=== PATIENT | female | born 1950 | race Caucasian/White ===

== ENCOUNTER 2016-03-30 09:55 | Day surgery (SDC) | payer OTHER ==
[2016-03-30] MEDS ORDERED: NS 1,000 ML ONE (10:10)
[2016-03-30] MEDS ORDERED: CIPRO 400 MG/D5W 200 ML ONE (10:10)
[2016-03-30] MEDS ORDERED: PEPCID ONE (10:23)
[2016-03-30 11:05] LABS: HEMATOCRIT 38.5 % (37.0-47.0); HEMOGLOBIN 12.1 g/dL (12.0-16.0); MCH 25.4 PG (27-31); MCHC 31.4 g/dL (33-37); MCV 80.7 FL (81-99); MPV 9.3 FL (7.4-10.4); RBC 4.77 XMIL (4.2-5.4)
[2016-03-30 11:19] LABS: AGAP 11; BUN 8 mg/dL (8-22); CALCIUM 9.4 mg/dL (8.8-10.2); CHLORIDE 101 mmol/L (98-107); COSMO 280; POTASSIUM 3.7 mmol/L (3.5-5.1); SODIUM 141 mmol/L (136-145); TCO2 29 mmol/L (25-35)
[2016-03-30] MEDS ORDERED: MYLICON DROPS (DOSE) MISC ONE (14:04)
[2016-03-30] MEDS ORDERED: VERSED ONE (14:31)
[2016-03-30] MEDS ORDERED: DIPRIVAN 1% ONE (14:31)
[2016-03-30] MEDS ORDERED: XYLOCAINE-MPF 2% ONE (14:58)
--- NOTE | 2016-03-30 15:08 | Diag Imaging Result Document ---
PROCEDURE NAME: ERCP-BILIARY AND PANCREATIC - 03/30/2016 ERCP: FINDINGS: During the course of the procedure, Dr. Reese evidently removed sediment and stones from the common bile duct with sphincterotomy and placement of a stent. This is seen on the last image. IMPRESSION: Stent placement and sphincterotomy by Dr. Reese.
[2016-03-30 15:21] VITALS: BP 151/88
--- NOTE | 2016-03-30 15:25 | EKG Report ---
Test Performed on : 03/30/2016 10:57:23 AM Test Reason : Preop Blood Pressure : / mmHG Vent. Rate : 063 BPM Atrial Rate : 063 BPM P-R Int : 156 ms QRS Dur : 098 ms QT Int : 430 ms P-R-T Axes : 000 002 018 degrees QTc Int : 440 ms Normal sinus rhythm. Cannot rule out Anterior infarct , age undetermined Abnormal ECG No previous ECGs available Confirmed by Leo Norton MD ([id number]) on 03/31/2016 9:31:00 PM
--- NOTE | 2016-03-30 15:31 | OPERATIVE NOTE ---
PROCEDURE DATE : 03/30/2016 PROCEDURES: 1. Endoscopic retrograde cholangiopancreatography. 2. Sphincterotomy. 3. Lavage of the bile duct. 4. Stent placement. PREOPERATIVE DIAGNOSES: 1. Recurrent biliary pancreatitis. 2. Rule out common bile duct stone. POSTOPERATIVE DIAGNOSES: 1. Sludge packed common bile duct. 2. Possible papillary stenosis. DESCRIPTION OF PROCEDURE: After informed consent, adequate intravenous sedation, the scope introduced through the esophagus, stomach, and duodenum. The ampullary area appears to be slightly friable, possibly from recent pancreatitis. Selective cholangiogram was obtained. The patient had a 5 mm column of sludge. While the sphincterotomy was being done, the sludge fell out. After that, a lavage was done, after the duct was cleaned. A 10-Estonian, 5 cm stent was placed. The scope was withdrawn. The patient tolerated the procedure and was transferred back to recovery in satisfactory condition. She will need a cholecystectomy. Because of the quantity of the sludge and intact gallbladder, she will have problems in the future.
== END 2016-03-30 15:15 | disposition home or self-care (01) ==
LOC: ENDO 09:55
PROVIDERS: ATTEND Internal Medicine Gastroenterology
DX: K86.1 Other chronic pancreatitis (principal); Z87.891 Personal history of nicotine dependence
CPT/HCPCS: 74330; 80048; 85027; 93005; 93010; C2617; J0744; J2250; J7030; Q9966

== ENCOUNTER 2016-04-02 11:43 | Inpatient (IN) | payer OTHER ==
[2016-04-02 12:16] LABS: MANUAL DIFF NEEDED? NO
[2016-04-02 12:23] LABS: BASO% 0.4 % (0.0-0.8); EOS# 0.25 X1000 (0.0-0.7); EOS% 2.8 % (0.0-10.0); HEMATOCRIT 36.3 % (37.0-47.0); HEMOGLOBIN 11.4 g/dL (12.0-16.0); LYMPH% 31.4 % (20.5-51.1); MCH 25.1 PG (27-31); MCHC 31.4 g/dL (33-37); MCV 79.8 FL (81-99); MONO# 0.73 X1000 (0.11-0.59); MONO% 8.2 % (1.7-9.3); MPV 9.4 FL (7.4-10.4); NEUT% 57.2 % (42.2-75.2); PLT 292 X1000 (130-400); RBC 4.55 XMIL (4.2-5.4)
[2016-04-02] MEDS ORDERED: BOOSTRIX VACCINE IM ONE (12:37)
[2016-04-02] MEDS ORDERED: NS 1,000 ML IV ONE (12:43)
[2016-04-02] MEDS ORDERED: ZOFRAN IV ONE (12:43)
[2016-04-02] MEDS ORDERED: DILAUDID IV ONE ×2 (12:53→16:28)
[2016-04-02 12:58] LABS: AGAP 12; ALBUMIN 3.9 g/dL (3.5-5.0); ALKALINE PHOSPHATASE 135 U/L (32-104); BUN 6 mg/dL (8-22); CALCIUM 9.1 mg/dL (8.8-10.2); CHLORIDE 96 mmol/L (98-107); COSMO 269; GOT 32 U/L (10-30); GPT 30 U/L (10-36); POTASSIUM 3.7 mmol/L (3.5-5.1); SODIUM 136 mmol/L (136-145); TCO2 28 mmol/L (25-35); TOTAL BILIRUBIN 0.23 mg/dL (0.20-1.00)
[2016-04-02 12:59] LABS: AMYLASE 192 U/L (20-200); LIPASE 159 U/L (13-60)
--- NOTE | 2016-04-02 13:00 | PROVIDER DOCUMENTATION ---
Addendum entered and electronically signed by Sarina Rainey MD 04/02/16 16:08: Additional Progress - ADDITIONAL PLAN OF CARE/RESULTS Additional Progress/Plan/Lab Results: Consulted Dr. Whiteside, agreed to admit pt to hospitalist and Dr. Lindquist will take over pt's care tomorrow morning. Addendum entered and electronically signed by Sarina Raniey MD 04/02/16 15:55: Additional Progress - ADDITIONAL PLAN OF CARE/RESULTS Additional Progress/Plan/Lab Results: Admit to Dr. Persaud Original Note: HPI-Abdominal Pain/GI Problem - General Source: patient, family - History of Present Illness-ABD Nature of Presenting Problems: Hx of pancreatitis x [address] Donald on Tuesday had stent placed in Gallbladder duct and reports to er today with cc of LUQ pain sharp since this morning. Reports has had no BM since Tuesday. States has had generalized itching since procedure as well. Abdominal Pain Onset Location: reports: LUQ Pain Radiation: reports: no radiation Quality of Pain: reports: sharp Severity in ED: reports: moderate Onset/Duration: reports: this morning Timing: reports: still present Last BM: 3 days ago Dark Stools Present?: reports: none noticed Rectal Bleeding: reports: none Rectal Pain: reports: none Bruising or Bleeding Gums?: No Similar Symptoms Previously?: No Recently seen or treated by another doctor?: Yes <Melisa Dennison - Last Filed: 04/02/16 15:28> <Sarina Rainey - Last Filed: 04/02/16 15:50> - General Chief Complaint: Abdominal Pain Stated Complaint: ABD PAIN Time Seen by Provider: 04/02/16 12:36 Allergies/Adverse Reactions: Patient Allergies Allergy/AdvReac Type Severity Reaction Status Date / Time phenazopyridine HCl * Allergy Unknown NAUSEA/VOMI Verified 04/02/16 14:37 [From Pyridium] TING NSAIDS (Non-Steroidal Allergy HIVES Verified 04/02/16 14:37 Anti-Inflamma codeine AdvReac NAUSEA/VOMI Verified 04/02/16 14:37 TING Home Medications: Home Medication List Medication Instructions Recorded Confirmed Last Taken Type Esomeprazole [Nexium] 40 mg PO DAILY 07/14/15 03/30/16 03/29/16 History Promethazine [Phenergan] 25 mg PO BID PRN PRN #20 tablet 03/30/16 Unknown Rx Review of Systems - Adult - REVIEW OF SYSTEMS - ADULT Constitutional: denies: chills, fever, fatique Eyes: reports: no symptoms reported Ears, Nose, Mouth & Throat: reports: no symptoms reported Cardiovascular: denies: chest pain, irregular heart rate, orthopnea Respiratory: reports: no symptoms reported Gastrointestinal: reports: see HPI, abdominal pain. denies: diarrhea, nausea, vomiting Genitourinary: denies: dysuria, frequent UTI's, hematuria Musculoskeletal: reports: no symptoms reported Integumentary: reports: see HPI, itching. denies: hives, hair loss, mole changes, nail changes, rash Neurological: reports: no symptoms reported Psychiatric: reports: no symptoms reported Endocrine: reports: no symptoms reported Hematologic/Lymphatic: reports: no symptoms reported Allergic/Immunologic: reports: no symptoms reported All Other Systems: Reviewed and Negative <Melisa Dennison - Last Filed: 04/02/16 15:28> Past History - Adult - PAST MEDICAL HISTORY-ADULT Review of Records: reports: Nursing Assessment Review, Medications Reviewed Major Childhood Illnesses: reports: denies history Cardiovascular: reports: HTN, hyperlipidemia Respiratory: reports: sleep apnea Gastrointestinal: reports: IBS, pancreatitis Neurological: reports: Multiple Sclerosis, Parkinson's Endocrine/Immune: reports: thyroid disorder - PRIOR SURGERIES/PROCEDURES Surgical/Procedure History: reports: appendectomy, hysterectomy, BTL, bowel surgery, breast, other (bladder cancer x5) - IMMUNIZATION STATUS Childhood Immunizations: See Nurse Assessment Flu Vaccine: See Nurse Assessment - SOCIAL HISTORY Smoking: denies Substance Use: none/never <Melisa Dennison - Last Filed: 04/02/16 15:28> Physical Exam-General - PHYSICAL EXAM-ADULT Initial Vital Signs Reviewed: Yes - CONSTITUTIONAL General Appearance: appears well, alert, no apparent distress - EYES Eyes: PERRL/EOMI - NECK Neck: non-tender, full range of motion, supple, normal inspection - RESPIRATORY Respiratory: chest non-tender, lungs clear, normal breath sounds - CARDIOVASCULAR Cardiovascular: regular rate, rhythm - GASTROINTESTINAL (ABDOMEN) Abdominal Exam: soft, no organomegaly, no pulsatile mass, tenderness ( generalized). negative: distended, guarding, rigid, rebound - MUSCULOSKELETAL Extremity: normal range of motion, non-tender - SKIN Integumentary: normal color, normal turgor, warm/dry - NEUROLOGIC Neurologic: grossly normal - PSYCHIATRIC Psych/Mental Status: normal mood/affect, normal thought content, normal thought process, oriented x 3 <Melisa Dennison - Last Filed: 04/02/16 15:28> Progress - PLAN OF CARE/RESULTS Progress/Plan/Lab Results: Orders Category Date Time Status ABDOMEN/PELVIS W/CONTRAST [CT] Stat Exams 04/02/16 12:41 Ordered AMYLASE [CHEM] Stat Lab 04/02/16 12:08 Received CBC WITH ELECTRONIC DIFF [HEME] Stat Lab 04/02/16 12:08 Completed CMP [COMPREHENSIVE METABOLIC PANEL] [CHEM] Stat Lab 04/02/16 12:08 Received LIPASE [CHEM] Stat Lab 04/02/16 12:08 Received UA NIMS W/REFLEX CULT [URINALYSIS] Stat Lab 04/02/16 12:41 Uncollected 0.9% Sodium Chloride Inj [Ns] 1,000 ml Med 04/02/16 12:43 Active IV 999 mls/hr Diph,Pertuss(Acell),Tet Vac/Pf [Boostrix Vaccine] Med 04/02/16 12:37 Discontinued 0.5 ml IM .ONCE ONE Hydromorphone [Dilaudid] Med 04/02/16 12:53 Discontinued 1 mg IV NOW ONE Ondansetron [Zofran] Med 04/02/16 12:43 Discontinued 8 mg IV NOW ONE Vital Signs - 24 hr 04/02/16 11:57 Temperature 98.1 F Pulse Rate 94 H Respiratory 20 Rate Blood Pressure 168/83 O2 Sat by Pulse 100 Oximetry Laboratory Tests 04/02/16 12:08 WBC 8.91 RBC 4.55 Hgb 11.4 L Hct 36.3 L MCV 79.8 L MCH 25.1 L MCHC 31.4 L RDW Std Deviation 13.7 Plt Count 292 MPV 9.4 Immature Gran % (Auto) 0.0 Neut % (Auto) 57.2 Lymph % (Auto) 31.4 Hendry % (Auto) 8.2 Eos % (Auto) 2.8 Baso % (Auto) 0.4 Immature Gran # (Auto) 0.00 Neut # (Auto) 5.09 Lymph # (Auto) 2.80 Hendry # (Auto) 0.73 H Eos # (Auto) 0.25 Baso # (Auto) 0.04 Laboratory Tests 04/02/16 04/02/16 04/02/16 12:08 12:08 12:08 WBC 8.91 RBC 4.55 Hgb 11.4 L Hct 36.3 L MCV 79.8 L MCH 25.1 L MCHC 31.4 L RDW Std Deviation 13.7 Plt Count 292 MPV 9.4 Immature Gran % (Auto) 0.0 Neut % (Auto) 57.2 Lymph % (Auto) 31.4 Hendry % (Auto) 8.2 Eos % (Auto) 2.8 Baso % (Auto) 0.4 Immature Gran # (Auto) 0.00 Neut # (Auto) 5.09 Lymph # (Auto) 2.80 Hendry # (Auto) 0.73 H Eos # (Auto) 0.25 Baso # (Auto) 0.04 Sodium 136 Potassium 3.7 Chloride 96 L Carbon Dioxide 28 Anion Gap 12 BUN 6 L Creatinine 0.6 Estimated GFR/1.73 m2 > 60 BUN/Creatinine Ratio 10 Glucose 93 Calculated Osmolality 269 Calcium 9.1 Total Bilirubin 0.23 AST 32 H ALT 30 Alkaline Phosphatase 135 H Total Protein 7.0 Albumin 3.9 Globulin 3.1 Albumin/Globulin Ratio 1.3 Amylase 192 Lipase 159 H Urine Source Urine Color Urine Turbidity Urine pH Ur Specific [place] Urine Protein Ur Glucose (Stick) Ur Ketones (Stick) Urine Blood Urine Nitrite Urine Bilirubin Urobilinogen Dipstick Urine Leukocytes Urine WBC (Auto) Urine RBC (Auto) U Epithel Cells (Auto) Urine Bacteria (Auto) 04/02/16 13:50 WBC RBC Hgb Hct MCV MCH MCHC RDW Std Deviation Plt Count MPV Immature Gran % (Auto) Neut % (Auto) Lymph % (Auto) Hendry % (Auto) Eos % (Auto) Baso % (Auto) Immature Gran # (Auto) Neut # (Auto) Lymph # (Auto) Hendry # (Auto) Eos # (Auto) Baso # (Auto) Sodium Potassium Chloride Carbon Dioxide Anion Gap BUN Creatinine Estimated GFR/1.73 m2 BUN/Creatinine Ratio Glucose Calculated Osmolality Calcium Total Bilirubin AST ALT Alkaline Phosphatase Total Protein Albumin Globulin Albumin/Globulin Ratio Amylase Lipase Urine Source CLEAN CATCH Urine Color YELLOW Urine Turbidity CLEAR Urine pH 6.5 Ur Specific [place] 1.010 Urine Protein NEGATIVE Ur Glucose (Stick) NEGATIVE Ur Ketones (Stick) NEGATIVE Urine Blood NEGATIVE Urine Nitrite NEGATIVE Urine Bilirubin NEGATIVE Urobilinogen Dipstick NORMAL Urine Leukocytes NEGATIVE Urine WBC (Auto) <10 Urine RBC (Auto) <10 U Epithel Cells (Auto) <10 Urine Bacteria (Auto) NEGATIVE Laboratory Tests 04/02/16 04/02/16 04/02/16 12:08 12:08 12:08 WBC 8.91 RBC 4.55 Hgb 11.4 L Hct 36.3 L MCV 79.8 L MCH 25.1 L MCHC 31.4 L RDW Std Deviation 13.7 Plt Count 292 MPV 9.4 Immature Gran % (Auto) 0.0 Neut % (Auto) 57.2 Lymph % (Auto) 31.4 Hendry % (Auto) 8.2 Eos % (Auto) 2.8 Baso % (Auto) 0.4 Immature Gran # (Auto) 0.00 Neut # (Auto) 5.09 Lymph # (Auto) 2.80 Hendry # (Auto) 0.73 H Eos # (Auto) 0.25 Baso # (Auto) 0.04 Sodium 136 Potassium 3.7 Chloride 96 L Carbon Dioxide 28 Anion Gap 12 BUN 6 L Creatinine 0.6 Estimated GFR/1.73 m2 > 60 BUN/Creatinine Ratio 10 Glucose 93 Calculated Osmolality 269 Calcium 9.1 Total Bilirubin 0.23 AST 32 H ALT 30 Alkaline Phosphatase 135 H Total Protein 7.0 Albumin 3.9 Globulin 3.1 Albumin/Globulin Ratio 1.3 Amylase 192 Lipase 159 H Urine Source Urine Color Urine Turbidity Urine pH Ur Specific [place] Urine Protein Ur Glucose (Stick) Ur Ketones (Stick) Urine Blood Urine Nitrite Urine Bilirubin Urobilinogen Dipstick Urine Leukocytes Urine WBC (Auto) Urine RBC (Auto) U Epithel Cells (Auto) Urine Bacteria (Auto) 04/02/16 13:50 WBC RBC Hgb Hct MCV MCH MCHC RDW Std Deviation Plt Count MPV Immature Gran % (Auto) Neut % (Auto) Lymph % (Auto) Hendry % (Auto) Eos % (Auto) Baso % (Auto) Immature Gran # (Auto) Neut # (Auto) Lymph # (Auto) Hendry # (Auto) Eos # (Auto) Baso # (Auto) Sodium Potassium Chloride Carbon Dioxide Anion Gap BUN Creatinine Estimated GFR/1.73 m2 BUN/Creatinine Ratio Glucose Calculated Osmolality Calcium Total Bilirubin AST ALT Alkaline Phosphatase Total Protein Albumin Globulin Albumin/Globulin Ratio Amylase Lipase Urine Source CLEAN CATCH Urine Color YELLOW Urine Turbidity CLEAR Urine pH 6.5 Ur Specific [place] 1.010 Urine Protein NEGATIVE Ur Glucose (Stick) NEGATIVE Ur Ketones (Stick) NEGATIVE Urine Blood NEGATIVE Urine Nitrite NEGATIVE Urine Bilirubin NEGATIVE Urobilinogen Dipstick NORMAL Urine Leukocytes NEGATIVE Urine WBC (Auto) <10 Urine RBC (Auto) <10 U Epithel Cells (Auto) <10 Urine Bacteria (Auto) NEGATIVE - CT/MRI 1 CT Study: Abdomen Impression: Abnormal (mild ileus vs partial SBO, pancreatic head larger than 08/10; CBD stent; constipation ()) <Melisa Dennison - Last Filed: 04/02/16 15:28> Departure - Departure Time of Disposition Order: 15:29 Certified Medical Emergency: Emergent <Melisa Dennison - Last Filed: 04/02/16 15:28> - Departure Time of Disposition Order: 15:50 Certified Medical Emergency: Emergent <Sarina Rainey - Last Filed: 04/02/16 15:50> - Departure DIAGNOSIS: SBO (small bowel obstruction) Pancreatitis, chronic Qualifiers: Pancreatitis type: unspecified pancreatitis type Qualified Code(s): K86.1 - Other chronic pancreatitis Disposition: ADMITTED INPATIENT 09 Condition: Stable Referrals: Mali Johansen MD [Primary Care Provider] - Attestation - Scribe Verification/Attestation Scribe:: Melisa Dennison Acting as Scribe for:: Sarina Rainey Scribe documention review:: This chart was documented by a scribe and accurately reflects the service the provider performed and the decisions made by the provider. <Melisa Dennison - Last Filed: 04/02/16 15:28> Physician Attestation
[2016-04-02 14:07] LABS: URINE CULTURE NEEDED? NO; URINE MICRO REVIEW NEEDED? NO; URINE SOURCE CLEAN CATCH
[2016-04-02 14:12] LABS: BILIRUBIN URINE NEGATIVE (NEGATIVE); BLOOD URINE NEGATIVE (NEGATIVE); COLOR YELLOW; GLUCOSE URINE NEGATIVE (NEGATIVE); LEUKOCYTES URINE NEGATIVE (NEGATIVE); NITRITE URINE NEGATIVE (NEGATIVE); PH URINE 6.5; PROTEIN URINE NEGATIVE (NEGATIVE); TURBIDITY URINE CLEAR (CLEAR); UR EPITHELIAL CELLS <10 /HPF (<10); URINE BACTERIA NEGATIVE /HPF; URINE RBC <10 /HPF (<10); URINE WBC <10 /HPF (<10); UROBILINOGEN URINE NORMAL (NORMAL)
[2016-04-02] MEDS ORDERED: HYDROXYZINE PO ONE (14:47)
[2016-04-02] MEDS ORDERED: BENADRYL IV ONE ×2 (16:28→22:13)
--- NOTE | 2016-04-02 17:38 | Diag Imaging Result Document ---
PROCEDURE NAME: ABDOMEN/PELVIS W/CONTRAST - 04/02/2016 CT OF THE ABDOMEN WITH INTRAVENOUS CONTRAST: FINDINGS: There is no evidence of acute disease in the visualized portion of the chest. There is pneumobilia presumably due to the presence of a biliary stent in the common bile duct. There is periportal edema which was not the case at the time of the previous study of 08/11/2015. The pancreatic duct is dilated distally measuring over 7 mm. This has worsened since the previous study at which time it measured 6 mm. The mesenteric vessels are patent and the aorta is not distended. The spleen is stable in appearance as are the adrenal glands. The pancreatic head is larger than it was on the previous study. This may be due to inflammation but the possibility of neoplastic disease cannot be entirely excluded. The AP dimension measured anterior to the inferior vena cava at the level of the distal common bile duct has increased from 2.6-3.8 cm. There is still a knuckle of small bowel herniating into the defect at the level of the umbilicus which was also the case previously. There is a moderately large amount of stool in the colon, all of which appears to be on the left side of the abdomen. There is some small bowel loops which are distended in the mid abdomen. There is contrast in the distal small bowel, however, and this is fairly normal in caliber. There is a fairly large amount of stool in the colon. There is otherwise no significant adenopathy. The kidneys are without evidence of hydronephrosis. There are multiple cortical cysts in the left kidney. There are surgical clips throughout the left side of the abdomen including the anterior pararenal space. CT OF THE PELVIS WITH INTRAVENOUS AND ORAL CONTRAST: FINDINGS: There is stool all the way to the rectum. There is no evidence of significant free fluid. There has been a hysterectomy. The urinary bladder is unremarkable. IMPRESSION: 1. The possibility of focal ileus or partial small bowel obstruction in the proximal small bowel cannot be excluded. 2. Constipation. 3. Enlargement of the pancreatic head as described. 4. Biliary stent. 5. Otherwise, stable since 08/11/2015.
[2016-04-02] MEDS ORDERED: SODIUM CHLORIDE 0.9% INJ SCH ×2 (17:50)
--- NOTE | 2016-04-02 18:10 | HISTORY AND PHYSICAL ---
PRIMARY CARE PHYSICIAN: Dr. Karen Johansen. HEARING OFFICER: Dr. Reese. NEUROLOGIST: Dr. Amezcua in [place]. CHIEF COMPLAINT: Abdominal pain. HISTORY OF PRESENT ILLNESS: Mrs. Phan is a 65-year-old female, with multiple medical problems including Parkinson's, MS, bladder cancer in current remission, chronic pancreatitis, hypertension and hyperlipidemia who was recently seen by Dr. Reese here and had an ERCP with stent placement secondary to chronic pancreatitis approximately 2 days ago. Since that time, she has been constipated and yesterday she began to develop mild abdominal pain which worsened today to a sharp epigastric pain which occasionally radiates to the left upper quadrant. She also has generalized itching but no rash. She also complains of subjective fever and chills and diaphoresis. She denies any chest pain or shortness of breath. She has no other complaints with the exception of the previously stated. When she got to the ER here she had lab work done. Her lipase was only mildly elevated at 159 and there was no white count. Urinalysis did not show anything acute. A CT abdomen and pelvis showed mild ileus versus partial SBO, pancreatic head larger than previous and a CBD stent in place. Constipation was also noted. Her vital signs are stable. We are now going to admit her for further treatment and evaluation. PAST MEDICAL HISTORY: 1. Chronic pancreatitis. 2. Essential sleep apnea. 3. History of bladder cancer currently in remission. 4. Parkinson's disease followed by Dr. Amezcua in [place]. 5. MS. 6. RLS. 7. IBS. 8. Hypertension. 9. Hyperlipidemia. 10. GERD. SURGICAL HISTORY: Tubal ligation, appendectomy, hysterectomy, breast biopsy, multiple bladder cancers removed, partial colon resection with approximately 16 cm of colon remaining per patient report, thyroidectomy. SOCIAL HISTORY: Patient quit smoking some time ago. She denies alcohol or drug use. is at the bedside. FAMILY HISTORY: Mother from colon cancer. Father from dementia. REVIEW OF SYSTEMS: Fourteen-point review of systems was obtained and found to be negative with the exception of the HPI. HOME MEDICATIONS: Currently she is not on any medications secondary to her pancreatitis but she is on Diovan 80 mg daily, amantadine 100 mg twice a day, duloxetine 60 mg daily, donepezil 5 mg daily, Azilect 1 mg as directed, Nexium 40 mg daily, Nu-Pro patch 4 mg as directed, atorvastatin 40 mg daily, Zyrtec as needed. ALLERGIES: To phenazopyridine, NSAIDs, codeine. REVIEW OF SYSTEMS: 14 point review of systems obtained and found to be negative with the exception of the HPI. PHYSICAL EXAMINATION: VITAL SIGNS: Blood pressure is 166/94, heart rate is 83, respiratory rate is 20, O2 saturations 97% on room air. Temperature is 98.1 degrees. GENERAL: This is an overweight female, lying in hospital bed in no acute distress. NEUROLOGIC: Awake, alert and oriented. She follows commands without focal deficits. HEENT: Head is atraumatic and normocephalic. Her pupils are equal, round, reactive to light. Oral mucosa is moist. Trachea is midline. There is no JVD or carotid bruits. CHEST: Clear to auscultation bilaterally. CV: Regular rate and rhythm. S1, S2 is noted. No murmurs, gallops, clicks, or rubs. GI: Epigastric tenderness to palpation. Overall belly is soft with hypoactive bowel sounds. No distention. EXTREMITIES: Without edema, clubbing or cyanosis. Pulses are palpable bilaterally. DIAGNOSTIC DATA: CT abdomen please see HPI. WBC 8.91, hemoglobin 11.4, hematocrit 36.3, platelet count 292,000. Sodium 136, potassium 3.7, chloride 96, CO2 28, anion gap 12. BUN 6, creatinine 0.6, glucose 93, AST 32, ALT 30, alkaline phosphatase 135, protein 7, lipase 159, amylase 192. UA is negative for any acute process. ASSESSMENT/PLAN: 1. Acute on chronic pancreatitis in the setting of recently placed CBD stent: Patient will be kept NPO with IV fluids and pain medicine. We will consult Dr. Reese and continue with fluids and antiemetics. 2. Hypertension. We will treat with IV p.r.n. medications. 3. GERD. We will add IV Protonix. 4. History of MS and Parkinson's: Chronic and stable. Will restart her medications once she is able to take oral medications. 5. History of bladder cancer: This is currently in remission, however given her longstanding history of malignancy, we will go ahead and order a CA-19-9 to rule out pancreatic malignancy. 6. DVT prophylaxis. We will add SCDs, TEDs. 7. GI prophylaxis, Protonix. 8. Further recommendations to follow. Dictated by SARA Knight for Pio Roe MD
[2016-04-02] MEDS: NS 1,000 ML IV SCH (19:00)
[2016-04-02] MEDS: MORPHINE IV PRN ×2 (19:01→22:58)
[2016-04-02] MEDS: PROTONIX IV SCH (19:01)
[2016-04-02] MEDS ORDERED: BENADRYL PO ONE (20:27)
[2016-04-02] MEDS ORDERED: CHLORASEPTIC SPRAY MT PRN (22:13)
[2016-04-02] MEDS: DULCOLAX PR SCH (22:59)
[2016-04-02] MEDS: MIRALAX PO SCH (22:59)
[2016-04-02] MEDS: ZOFRAN IV PRN (22:59)
[2016-04-03] MEDS: MORPHINE IV PRN ×4 (03:22→16:35)
[2016-04-03 06:32] LABS: HEMOGLOBIN 11.2 g/dL (12.0-16.0); MCH 25.1 PG (27-31); MCHC 31.1 g/dL (33-37); MCV 80.5 FL (81-99); MPV 9.5 FL (7.4-10.4); RBC 4.47 XMIL (4.2-5.4)
[2016-04-03 06:49] LABS: AGAP 12; ALBUMIN 3.4 g/dL (3.5-5.0); ALKALINE PHOSPHATASE 129 U/L (32-104); BUN 6 mg/dL (8-22); CALCIUM 8.9 mg/dL (8.8-10.2); CHLORIDE 99 mmol/L (98-107); COSMO 275; GOT 23 U/L (10-30); GPT 22 U/L (10-36); LIPASE 122 U/L (13-60); POTASSIUM 3.8 mmol/L (3.5-5.1); SODIUM 139 mmol/L (136-145); TCO2 28 mmol/L (25-35); TOTAL BILIRUBIN 0.39 mg/dL (0.20-1.00); TOTAL PROTEIN 6.3 g/dL (6.3-8.3)
[2016-04-03] MEDS: NS 1,000 ML IV SCH (07:45)
[2016-04-03] MEDS: MIRALAX PO SCH (09:48)
--- NOTE | 2016-04-03 16:08 | PROGRESS NOTE ---
DATE: 04/03/2016 SUBJECTIVE: Today Ms. Phan referred to be doing a whole lot better. The abdominal intermittent pain seems to have improved. She still also has some nausea but no vomiting. OBJECTIVE: Vitals: Blood pressure is 136/67, pulse of 82, respirations 16, temperature is 98.3 degrees, patient is saturating 97% on room air. General: Ms. Phan 65-year-old female. She was in bed. Did not seem to be in any distress. HEENT: Mucosa is pink and moist. Anicteric. Acyanotic. Neck: Supple. Chest: Good air entry bilaterally. No crepitations. No rhonchi. Cardiovascular: Regular rate and rhythm. No murmurs, no rubs. No gallops. Abdomen: Soft, nontender. Bowel sounds are present. No hepatosplenomegaly. Extremities: No pedal edema. COMMERCIAL SINGER: Patient is alert and oriented x4. There is no focal neurological deficit. LABORATORY DATA: WBC is 5.98, hemoglobin is 11.3, platelet count of 252,000. Sodium is 139, potassium is 3.8, chloride is 99, bicarbonate is 28. Liver enzymes seems to be fine. Lipase was slightly elevated 122. ASSESSMENT: 1. Recurrent pancreatitis. Patient just had just had ERCP with stent placement and sphincterectomy on 03/30/2016 where there was a lot of sludge in the common bile duct and this was cleaned according to Dr. Reese's note. This current pancreatitis could be secondary to the sludge or it could be due to ERCP induced pancreatitis. For now pain is resolved. We are going to start the patient on some clear liquid diet, observe her overnight and see how she does. 2. Fecal impaction. 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 However a CT scan on this admission shows fecal impaction. We are going to treat this symptomatically. 3. History of noninvasive papillary urothelial carcinoma noted. 4. Dilated common bile duct likely related to sludge. Patient had a stent in the common bile duct and during the surgery said she did have a lot of sludge which take into consideration the frequency of her pancreatitis I think she will benefit likely from taking the gallbladder out. 5. Gastroesophageal reflux disease. 6. History of Parkinson disease. PLAN: We are going to continue with the gentle hydration. Patient will be on MiraLAX for bowel prep. I will continue with the PPI and pain medication. As I said will start the patient on clear liquid diet and advance it as she tolerates.
[2016-04-03] MEDS: ZOFRAN IV PRN (16:35)
[2016-04-03] MEDS: PROTONIX IV SCH (17:55)
--- NOTE | 2016-04-03 18:46 | CONSULTATION ---
DATE OF CONSULTATION: 04/03/2016 GASTROENTEROLOGY CONSULTATION REASON FOR CONSULTATION: Mild pancreatitis, abdominal pain, constipation. PRIMARY CARE DOCTOR: Dr. Mali Johansen HISTORY OF PRESENT ILLNESS: Ms. Phan is a 65-year-old female who was admitted for worsening abdominal pain. She had an ERCP by Dr. Reese on 03/30/2016 and it showed sludge packed in the common bile duct and possible papillary stenosis. She underwent sphincterotomy, lavage of the common bile duct and stent placement, 10 Frisian and 5 cm. Postoperatively, per the patient, she developed worsening abdominal pain for the last two days and decided to go to the hospital. Her lipase was mildly elevated at 159. CT scan showed evidence of prominence of the head of the pancreas than previous study, CBD stent in place, mild ileus versus partial SBO , and constipation was noted. Patient has a history of prior subtotal colectomy in 1997 in [place] for severe constipation. Patient has continued to have constipation, also diarrhea, for many weeks. PAST MEDICAL HISTORY: 1. Chronic pancreatitis. 2. Sleep apnea. 3. Bladder cancer, currently in remission. 4. Parkinson's disease, being followed by Dr. Amezcua in [place]. 5. Multiple sclerosis. 6. Restless legs syndrome. 7. Irritable bowel syndrome with constipation. 8. Hypertension. 9. Hyperlipidemia. 10. Gastroesophageal reflux disease. SURGICAL HISTORY: 1. Tubal ligation. 2. Appendectomy. 3. Hysterectomy. 4. Breast biopsy. 5. Multiple bladder cancers, removed. 6. Partial colon resection with approximately 16 cm of colon remaining, per the patient. Patient reports subtotal colectomy done in 1997 in [place]. 7. Thyroidectomy. SOCIAL HISTORY: Quit smoking some time ago. Denies any alcohol or illicit drug abuse. FAMILY HISTORY: Mother had colon cancer. Father from dementia. REVIEW OF SYSTEMS: Denies any fevers, rigors, chills, chest pain, shortness of breath, dyspnea at rest. Denies any vomiting or passing blood in the stools. Does complain of constipation. Does have a history of known Parkinson's and multiple sclerosis. Denies any neurologic complaints. MEDICATIONS AT HOME: Diovan, amantadine, duloxetine, donepezil, Azilect, Nexium , Neupro patch, atorvastatin, Zyrtec. ALLERGIES: PHENAZOPYRIDINE, NONSTEROIDAL ANTIINFLAMMATORY DRUGS, AND CODEINE. MEDICATIONS IN THE HOSPITAL: Morphine, phenol 1.44% spray, Zofran, IV fluids at 75 per hour, Protonix IV 24 hours, Dulcolax per rectum at bedtime, MiraLAX 17 grams p.o. b.i.d. She is currently NPO. PHYSICAL EXAMINATION: Vital signs: Temperature of 98.3, pulse rate of 82, respirations 16, blood pressure 136/67, saturating 96 on room air, body weight of 200 pounds 8 ounces, BMI of 32.4 kg/m2. General appearance: Moderately well nourished, lying in bed in no acute distress. HEENT: Pale conjunctivae. No icterus. Pupils equal, reactive to light. Neck: Supple. Chest: Decreased Breath sounds at the bases. Cardiovascular: Regular rate and rhythm. Abdomen: Mild splenomegaly. No rebound. No guarding. Bowel sounds are hypoactive. Extremities: No cyanosis, clubbing, edema. Neurologic: Neurologic vail, alert, awake, oriented. LABORATORY: Hemoglobin and hematocrit 11.2 and 36, white count 5.9, platelet count of 252, MCV of 80.5, sodium 139, potassium 3.8, chloride 99, bicarbonate 28, anion gap of 12, BUN of 6, creatinine of 0.7, glucose of 96. Calcium is 8.9. Total bilirubin is 0.39, AST 23, ALT 22. Alkaline phosphatase is 129. Total protein 6.3, albumin of 3.4, lipase of 122, amylase of 192. Lipase on admission was 159. Even in the past, as going back to August 2015, she had a high lipase. The highest one was 289 on 08/12/2015. Urinalysis clear. IMAGING STUDIES: She had CT scan of the abdomen and pelvis on 04/02/2016, which showed possibility of focal ileus or partial SBO in the proximal small bowel cannot be excluded; constipation; enlargement of the pancreatic head as described; biliary stent. Otherwise stable. IMPRESSION AND PLAN: 1. Recurrent pancreatitis. The last episode was in August 2015 and currently she is status post endoscopic retrograde cholangiopancreatography on 03/30/[address] Reese. Her lipase is trending down. I suspect it could be post endoscopic retrograde cholangiopancreatography pancreatitis or could be medication related. She has a known history of gallbladder sludge disease, which can cause recurrent pancreatitis also. In fact, the endoscopic retrograde cholangiopancreatography showed findings of biliary sludge in her common bile duct. In this regard, we will continue with IV fluids, IV antiemetics, IV pain control, and will start her on clear liquids today, and advance as tolerated. She needs to be on low-fat diet for six weeks. The patient will follow up with Dr. Reese in four to six weeks to evaluate for endoscopic retrograde cholangiopancreatography stent removal. The patient will also benefit from cholecystectomy. In that regard, surgical consultation will be useful. 2. Constipation per imaging and gastrointestinal history of subtotal colectomy 1997 at [place] because of chronic constipation. We will give her MiraLAX and Dulcolax as above. 3. Fullness of the head of the pancreas. In that regard, we will follow CA 19-9 , and if it is elevated, she may benefit from endoscopic ultrasound as an outpatient. 4. History of multiple sclerosis, Parkinson syndrome, being followed by Dr. Amezcua as an outpatient at [place]. 5. Gastrointestinal prophylaxis. Protonix once a day. 6. History of colon polyps on last colonoscopy in [place] and FH of colon cancer in mother: Will need colonoscopy in near future. patient will call us to schedule. MTDD
[2016-04-04] MEDS: DULCOLAX PR SCH (00:45)
[2016-04-04] MEDS: MIRALAX PO SCH ×2 (00:45→10:08)
[2016-04-04 04:32] VITALS: BP 147/76
[2016-04-04] MEDS: NS 1,000 ML IV SCH (05:37)
[2016-04-04 06:34] LABS: HEMATOCRIT 35.2 % (37.0-47.0); MCH 25.1 PG (27-31); MCHC 31.3 g/dL (33-37); MCV 80.4 FL (81-99); MPV 9.5 FL (7.4-10.4); RBC 4.38 XMIL (4.2-5.4)
[2016-04-04 06:58] LABS: AGAP 14; ALBUMIN 3.4 g/dL (3.5-5.0); ALKALINE PHOSPHATASE 131 U/L (32-104); BUN 7 mg/dL (8-22); CALCIUM 9.1 mg/dL (8.8-10.2); CHLORIDE 101 mmol/L (98-107); COSMO 281; GOT 21 U/L (10-30); GPT 20 U/L (10-36); LIPASE 60 U/L (13-60); POTASSIUM 4.2 mmol/L (3.5-5.1); SODIUM 142 mmol/L (136-145); TCO2 27 mmol/L (25-35); TOTAL BILIRUBIN 0.34 mg/dL (0.20-1.00); TOTAL PROTEIN 6.4 g/dL (6.3-8.3)
[2016-04-04] MEDS ORDERED: DULCOLAX PR SCH (09:00)
--- NOTE | 2016-04-05 06:52 | DISCHARGE SUMMARY ---
ADMISSION DATE: 04/02/2016 DISCHARGE DATE: 04/04/2016 DISPOSITION: Home. FOLLOWUP: 1. Dr. Lindquist. 2. Dr. Abreu. INVESTIGATIVE PROCEDURE DONE DURING THIS ADMISSION: None. IMAGING STUDIES OF SIGNIFICANCE: 1. Abdomen and pelvic CT was done which showed the possibility of focal ileus or partial small bowel obstruction in proximal small bowel, we excluded constipation. 2. Enlargement of pancreatic head. ADMISSION DIAGNOSES: 1. Acute on chronic pancreatitis. 2. Hypertension. 3. Gastroesophageal reflux disease. 4. History of multiple sclerosis. DISCHARGE DIAGNOSES: 1. Recurrent pancreatitis. 2. Fecal impaction. 3. History of noninvasive papillary urethral carcinoma. 4. Dilated common bile duct with stent placement. 5. CBD sludge. 6. History of Parkinson and medications. 7. History of subtotal colectomy in 1997 in [place] because of chronic constipation. 8. Pancreatic head swelling likely due to the underlying inflammation. DISCHARGE MEDICATIONS: 1. Nexium 40 mg daily. 2. Promethazine 25 b.i.d. p.r.n. 3. 1 patch. 4. Atorvastatin 40 mg daily. 5. Azilect 1 mg daily. 6. Duloxetine 60 mg daily. 7. Valsartan 80 mg daily. 8. Cetirizine 10 mg p.r.n. 9. Bisacodyl 20 mg daily TN. 10. MiraLAX 2 times per day. PRESENTING COMPLAINT: Abdominal pain. HISTORY OF PRESENTING COMPLAINT: Ms. Phan is a 65-year-old female with a history of chronic pancreatitis with dilation of CBD and sludge was seen by Dr. Reese and an ERCP was done two days prior to coming in to the hospital. The patient referred after the stent placement she was doing fine until started having this intermittent abdominal discomfort and pain, so she chose to come to the emergency room. A CT scan was done which showed possible partial small bowel obstruction. No I ileus and fecal impaction. Patient was treated more symptomatically for that. HOSPITAL COURSE: The patient was admitted to the floor. Pain was controlled. The patient did have 1 episode of bowel movement but she was completely asymptomatic. She tolerated clear liquids yesterday, and today she has been able to tolerate GI soft diet. No pain in the abdomen and patient is doing a whole lot better. Lipase level has normalized. We are therefore going to discharge the patient home to follow up with GI doctors. Because patient did have a lot of sludge in the CBD, it was thought reasonable to get surgery involved for cholecystectomy. I think this can be done as an outpatient. I will therefore refer the patient to see Dr. Abreu or any one of the surgeons here of her choice so that they can look at gallbladder removal. At the time of discharge, there are not any pending labs or imaging studies. The patient continues to have some come constipation. She has been advised to continue on the treatment as has been recommended by GI and follow up with them. CA-19-9 was ordered which is still pending at the time of discharge. PHYSICAL EXAMINATION: Today the patient's vitals have been reviewed. Blood pressure is 142/71, pulse of 78, respirations 22, temperature is 97.9 degrees. Her physical exam is completely unremarkable. PLAN: She is going to be discharged home as dictated above. TIME SPENT ON DISCHARGE: Time spent for discharge was 34 minutes. MTDD
--- NOTE | 2016-04-08 09:24 | DISCHARGE SUMMARY ---
ADMISSION DATE: 04/02/2016 DISCHARGE DATE: 04/04/2016 DISCHARGE SUMMARY ADDENDUM: Discharge diagnosis is recurrent pancreatitis. Etiology is unclear. It could be related to gallbladder sludge versus post ERCP induced.
== END 2016-04-04 14:43 | disposition home or self-care (01) | DRG 440 ==
LOC: ED 11:43 → 4N 17:18
PROVIDERS: ADMIT Internal Medicine; ATTEND Internal Medicine
DX: K86.1 Other chronic pancreatitis (principal); G20 Parkinson's disease; I10 Essential (primary) hypertension; G35 Multiple sclerosis; E78.5 Hyperlipidemia, unspecified; K82.8 Other specified diseases of gallbladder; G47.30 Sleep apnea, unspecified; K58.9 Irritable bowel syndrome, unspecified; G25.81 Restless legs syndrome; K21.9 Gastro-esophageal reflux disease without esophagitis; E89.0 Postprocedural hypothyroidism; E66.3 Overweight; K56.41 Fecal impaction; K58.1 Irritable bowel syndrome with constipation; Z87.891 Personal history of nicotine dependence; Z85.51 Personal history of malignant neoplasm of bladder; Z90.49 Acquired absence of other specified parts of digestive tract; Z80.0 Family history of malignant neoplasm of digestive organs; Z79.899 Other long term (current) drug therapy; Z96.89 Presence of other specified functional implants
CPT/HCPCS: 36415; 74177; 74330; 80048; 80053; 81001; 82150; 83690; 85025; 85027; 86301; 90715; 93005; 93010; 96374; 96375; C2617; C9113; J0744; J1170; J1200; J2250; J2270; J2405; J7030; Q9966; Q9967; S0164

== ENCOUNTER 2016-04-08 12:30 | Day surgery (SDC) | payer OTHER ==
[2016-04-08] MEDS ORDERED: LR 1,000 ML ONE (12:56)
[2016-04-08] MEDS ORDERED: FLEET ENEMA PR ONE (14:45)
[2016-04-08 15:24] LABS: MANUAL DIFF NEEDED? NO
[2016-04-08 15:27] LABS: BASO% 0.6 % (0.0-0.8); EOS% 4.6 % (0.0-10.0); HEMATOCRIT 35.5 % (37.0-47.0); HEMOGLOBIN 11.3 g/dL (12.0-16.0); LYMPH# 2.22 X1000 (1.2-3.4); LYMPH% 33.9 % (20.5-51.1); MCHC 31.8 g/dL (33-37); MCV 78.5 FL (81-99); MONO# 0.68 X1000 (0.11-0.59); MONO% 10.4 % (1.7-9.3); MPV 9.4 FL (7.4-10.4); NEUT% 50.5 % (42.2-75.2); PLT 339 X1000 (130-400); RBC 4.52 XMIL (4.2-5.4)
[2016-04-08] MEDS ORDERED: MYLICON DROPS (DOSE) MISC ONE (16:09)
[2016-04-08] MEDS ORDERED: DIPRIVAN 1% 50 ML ONE (17:07)
[2016-04-08] MEDS ORDERED: DEMEROL ONE (17:07)
[2016-04-08 18:41] VITALS: BP 149/89
--- NOTE | 2016-04-08 19:47 | OPERATIVE NOTE ---
PROCEDURE DATE: 04/08/2016 REFERRING PHYSICIAN: Mali Johansen MD. INDICATION FOR PROCEDURE: 1. Recent increase in reflux symptoms. 2. Epigastric pain. 3. Iron deficiency anemia. 4. Recent bout of acute pancreatitis. PROCEDURE PERFORMED: Esophagogastroduodenoscopy with biopsy. CONSENT: Informed consent was obtained from the patient prior to the procedure. The risks, benefits, and alternatives were discussed. MEDICATION: The patient received monitored anesthesia care. PERFORMING PHYSICIAN: Aylin Olivares MD. ASSISTANTS: 1. [facility] 2. Lexii Mackey RN 3. Jesus Manuel Heck CRNA 4. Shashi Chavez MD (Anesthesia). COMPLICATIONS: There were no complications. ESTIMATED BLOOD LOSS: Less than 1 mL. SPECIMENS REMOVED: 1. Duodenal biopsies. 2. Gastric biopsies. FINDINGS: After sedation was achieved, the upper endoscope was inserted to the 2nd portion of the duodenum. The hypopharynx appeared endoscopically normal. The tubular esophagus appeared normal to 38 cm. At 38 cm there were multiple linear erosions streaking into the mid esophagus consistent with grade B erosive esophagitis. The GE junction was measured at 32 cm from the incisors. There was a hiatal hernia that spanned from 42-45 cm. In the gastric lumen, there were nonbleeding AVMs present. There were fundic gland polyps present. In addition, there was more than 150-200 mL of bilious secretions in the fundus consistent with gastric stasis. After evacuation, there was minimal evidence of erythema in the gastric lumen. Overall, it appeared grossly normal. The pylorus was widely patent. In the duodenal bulb, there was mild inflammation that was patchy with no evidence of ulcers or masses. In the 2nd portion of the duodenum, the stent from her recent ERCP was visualized from the papilla. There was evidence of bile flow from the stent consistent with patency. Upon withdrawal of the scope, it was noted that the patient had bile staining to the mid esophagus consistent with bile reflux. The gastric secretions were evacuated and the lumen was decompressed. Biopsies were taken from both the duodenal and gastric mucosa. The procedure was terminated without incident. IMPRESSION: 1. Grade B erosive esophagitis. 2. Active bile reflux to the mid esophagus. 3. Hiatal hernia. 4. Nonbleeding arteriovenous malformations. 5. Fundic gland polyps. 6. Mild duodenitis. 7. Stent in the ampulla of Vater, with good bile drainage consistent with patency. 8. Retained secretions in the fundus of the stomach suggestive of gastroparesis. RECOMMENDATION: 1. Await biopsy results. 2. Continue Nexium 40 mg daily which was begun at the time of her clinic visit and has resulted in a marked decrease in her abdominal pain, heartburn and indigestion. 3. Add Carafate 1 g p.o. 4 times a day. 4. We will schedule the patient for a gastric emptying study to determine if she truly has gastroparesis. 5. We will proceed with the flexible sigmoidoscopy today for further evaluation of her lower gastrointestinal symptoms. 6. We will have the patient return to clinic in 4 weeks to assess interval progress.
--- NOTE | 2016-04-08 19:50 | OPERATIVE NOTE ---
PROCEDURE DATE: 04/08/2016 REFERRING PHYSICIAN: Mali Johansen MD. INDICATION FOR PROCEDURE: 1. Fecal impaction. 2. Refractory constipation. 3. Family history of colon cancer. 4. Personal history of colon polyps. 5. History of a subtotal colectomy for colonic inertia. PROCEDURE PERFORMED: Flexible sigmoidoscopy with polypectomy. CONSENT: Informed consent was obtained from the patient prior to the procedure. The risks, benefits, and alternatives were discussed. MEDICATION: The patient received monitored anesthesia care. PERFORMING PHYSICIAN: Aylin Olivares MD. ASSISTANTS: 1. CARLINE Truong. 2. Lexii Mackey RN 3. Jesus Manuel Heck CRNA 4. Shashi Chavez MD (anesthesia). COMPLICATIONS: There were no complications. ESTIMATED BLOOD LOSS: Less than 1 mL. SPECIMENS REMOVED: 1. Polyps x3 at 20 cm. 2. Polyps x6 at 15 cm. FINDINGS: After the EGD was performed, the upper endoscope was inserted to 60 cm. The terminal ileum appeared endoscopically normal. There was a normal-appearing anastomosis at 20 cm. Our exam was limited by the prep which was fair to poor. Upon further withdrawal, there were 3 polyps that ranged in size from 5-10 mm just distal to the anastomosis that were removed by snare cautery. At 15 cm there were 9 polyps that ranged in size from 5-10 mm. Six polyps were removed by snare cautery. The 3 smaller polyps were ablated. Upon further withdrawal, there were grade 1 internal hemorrhoids in the upper rectum. On retroflexed view, there were large external hemorrhoids with no evidence of bleeding. After the exam was complete, the lumen was decompressed and the scope was removed without incident. IMPRESSION: 1. Normal-appearing ileum. 2. Normal-appearing anastomosis. 3. Multiple colon polyps in the rectum. 4. Internal hemorrhoids, grade 1. 5. External hemorrhoids, large. RECOMMENDATION: 1. Resume diet. 2. We will consider a trial of Amitiza 24 mcg 1 p.o. b.i.d. when she returns to clinic. 3. Await biopsy results. 4. Repeat flexible sigmoidoscopy in 2-3 years. 5. We will have the patient return to clinic in 4 weeks to assess interval progress.
[2016-04-09] MEDS ORDERED: LR 1,000 ML ONE (09:46)
[2016-04-09] MEDS ORDERED: XYLOCAINE-MPF 2% ONE (09:46)
--- NOTE | 2016-04-13 09:47 | Diag Imaging Result Document ---
PROCEDURE NAME: GASTRIC EMPTYING - 04/13/2016 NUCLEAR MEDICINE GASTRIC EMPTYING EXAM: PROCEDURE: 573 microcuries of Tc99m sulfur colloid ingested with an egg. Imaging for 2 hours performed. T 1/2 is calculated to be 1 hour 58 hours. IMPRESSION: Slight delayed gastric emptying.
== END 2016-04-08 18:28 | disposition home or self-care (01) ==
LOC: ENDO 12:30
PROVIDERS: ATTEND Internal Medicine Gastroenterology
DX: K63.5 Polyp of colon (principal); K29.50 Unspecified chronic gastritis without bleeding; K64.0 First degree hemorrhoids; K64.4 Residual hemorrhoidal skin tags; K20.9 Esophagitis, unspecified; I10 Essential (primary) hypertension; E78.5 Hyperlipidemia, unspecified; G35 Multiple sclerosis; G20 Parkinson's disease
CPT/HCPCS: 78264; 85025; 88305; 88312; A9541; J2175; J7120

== ENCOUNTER 2016-04-22 12:22 | Day surgery (SDC) | payer OTHER ==
[2016-04-22] MEDS ORDERED: LR 1,000 ML ONE (13:01)
[2016-04-22] MEDS ORDERED: PEPCID ONE ×2 (13:36)
[2016-04-22] MEDS ORDERED: REGLAN PO ONE (13:37)
[2016-04-22] MEDS ORDERED: PEPCID PO ONE (13:37)
[2016-04-22] MEDS ORDERED: MYLICON DROPS (DOSE) MISC ONE (15:55)
[2016-04-22] MEDS ORDERED: DIPRIVAN 1% ONE (16:35)
[2016-04-22 16:53] VITALS: BP 145/78
[2016-04-22] MEDS ORDERED: NS 1,000 ML ONE (17:11)
[2016-04-22] MEDS ORDERED: XYLOCAINE-MPF 2% ONE (17:11)
--- NOTE | 2016-04-23 11:14 | OPERATIVE NOTE ---
PROCEDURE DATE: 04/22/2016 REFERRING PHYSICIAN: Mali Johansen MD. INDICATION FOR PROCEDURE: 1. Rectal bleeding post polypectomy. 2. Constipation. 3. Low abdominal pressure after severe straining due to constipation. PROCEDURE PERFORMED: Flexible sigmoidoscopy with control of bleeding. CONSENT: Informed consent was obtained from the patient prior to the procedure. The risks, benefits, and alternatives were discussed. MEDICATIONS: The patient received monitored anesthesia care. PERFORMING PHYSICIAN: Aylin Olivares MD. ASSISTANTS: 1. [facility] 2. , RN. 3. Fidelina Hill CRNA. 4. Shashi Rojas MD (anesthesia). COMPLICATIONS: There were no complications. ESTIMATED BLOOD LOSS: Less than 1 mL. SPECIMENS REMOVED: None. FINDINGS: After sedation was achieved, the flexible sigmoidoscopy was inserted to 60 cm. At 60 cm the terminal ileum was well visualized. There were scattered aphthous ulcers including one that was actively bleeding. Hemostasis was achieved after cautery. Upon withdrawal of the scope from 60 cm the terminal ileum appeared inflamed. The anastomosis was patent at 20. She has surgical changes consistent with a subtotal colectomy. Beginning at 20 cm there were healing ulcers from her recent polypectomy. The ulcers had whitish bases with no stigmata of bleeding. Upon further withdrawal, in the upper rectum there were small superficial ulcers. On retroflexed view, there were grade 2 internal hemorrhoids as well as external hemorrhoids. The lumen was decompressed and the scope was removed without incident. IMPRESSION: 1. Actively bleeding ileal lesions of unknown significance. 2. Rectal ulcers. 3. Internal hemorrhoids. 4. External hemorrhoids. RECOMMENDATION: 1. Begin Cortenema 1 per rectum at bedtime for 30 days. Will have the patient stop using the enemas and repeat her biopsy at that time to assess for interval changes. 2. She will need a routine flexible sigmoidoscopy in 1 year. 3. We will have the patient return to clinic in 1 week. 4. There does not appear to be evidence of post polypectomy bleed. She does have new ileitis of unknown significance that appears to be the cause of her bleeding.
== END 2016-04-22 16:55 | disposition home or self-care (01) ==
LOC: ENDO 12:22
PROVIDERS: ATTEND Internal Medicine Gastroenterology
DX: K62.5 Hemorrhage of anus and rectum (principal); K59.00 Constipation, unspecified; Z85.51 Personal history of malignant neoplasm of bladder; K21.9 Gastro-esophageal reflux disease without esophagitis; E78.5 Hyperlipidemia, unspecified; I10 Essential (primary) hypertension; G35 Multiple sclerosis; G20 Parkinson's disease; Z87.891 Personal history of nicotine dependence
CPT/HCPCS: J7030; J7120